=== PATIENT | male | born 2005 | race African-American/Black ===

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

== ENCOUNTER 2025-07-27 17:45 | Emergency (ER) | payer OTHER, SELFPAY ==
[2025-07-27 17:45] VITALS: BP 111/61; PULSE 98; RESP 16; TEMP 36.8; O2SAT 100
--- OUTSIDE RECORDS SUMMARY | 2025-07-27 17:48 | XMS_ITS | Clinical Summary ---
Author Organization [facility] Address [facility] [place] [address] Care Team Providers Care Bench Machine Operator Name Role Phone None, Provider MD Primary Care Provider Unavaila ble Allergies No known active allergies Medications azithromycin (ZITHROMAX Z-LACIE) 250 MG tablet Take 2 tabs on day one Take 1 tab on days 2-5 6 tablet 3 Active ondansetron (ZOFRAN-ODT) 4 MG disintegrating tablet Take 1 tablet (4 mg total) by mouth every 8 (eight) hours as needed. 20 tablet 4 Active dicyclomine (BENTYL) 10 MG capsule Take 1 capsule (10 mg total) by mouth 4 (four) times daily as needed. 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 Gender Identity Not on file Sexual Orientation Not on file Last Filed Vital Signs Vital Sign Reading Time Taken Comments Blood Pressure 125/56 07/04/2024 1:00 PM CDT Pulse 59 07/04/2024 1:00 PM CDT Temperature 36.4 C (97.5 F) 07/04/2024 10:57 AM CDT Respiratory Rate 18 07/04/2024 1:00 PM CDT Oxygen Saturation 100% 07/04/2024 1:00 PM CDT Inhaled Oxygen Concentration - - Weight 65.8 kg (145 lb) 07/04/2024 10:48 AM CDT Height 180.3 cm (5' 11) 07/04/2024 10:48 AM CDT Body Mass Index 20.22 07/04/2024 10:48 AM CDT Plan of Treatment Health Maintenance Due Date Last Done Comments Annual Physical 2008 Meningococcal B Vaccine (1 of 2 - Standard) 2021 Hepatitis C 2023 COVID-19 Vaccine ( - 2023- season) 2024 DTaP, Tdap and Td Vaccines (8 - Td or Tdap) 06/16/2033 06/16/2023, 09/17/2016, 07/20/2009, Additional history exists Hepatitis B Vaccines Completed 01/10/2007, 01/10/2007, 05/03/2006, Additional history exists Pneumococcal Vaccine: Pediatrics (0 to 5 Years) and At-Risk Patients (6 to 49 Years) Completed 02/01/2009, 05/03/2006, 2005, Additional history exists HPV Vaccines Completed 09/17/2016, 11/08/2015 Meningococcal Vaccine Completed 06/13/2022, 017 RSV Immunizations Under 20 Months Aged Out No longer eligible based on patient's age to complete this topic [facility] [address] Care Teams Bench Machine Operator Relationship Specialty Start Date End Date None, Provider, MD PCP - General UNKNOWN PHYSICIAN SPECIALTY 11/20/23
--- OUTSIDE RECORDS SUMMARY | 2025-07-27 17:48 | XMS_ITS | Clinical Summary ---
Author Organization [facility] [place] Address [address] [place] [address] Care Team Providers Care Service Center Assistant Name Role Phone Unknown, Notinfile Primary Care Provider Unavail able Allergies No known active allergies Medications naproxen (NAPROSYN) 500 mg tablet Take 1 tablet (500 mg total) by mouth 2 (two) times a day with meals 30 tablet 06/16/2023 Active Immunizations Immunization Administration Dates Next Due Tdap 06/16/2023 Social History Tobacco Use Types Packs/Day Years Used Date Smoking Tobacco: Never Assessed Personal Safety Answer Date Recorded Getting School Help Needed Not on file 01/25 Sex and Gender Information Value Date Recorded Sex Assigned at Not on file Legal Sex Male 7:56 PM CDT Gender Identity Not on file Sexual Orientation Not on file Last Filed Vital Signs Vital Sign Reading Time Taken Comments Blood Pressure 115/86 06/16/2023 10:17 PM CDT Pulse 77 06/16/2023 10:17 PM CDT Temperature 36.4 C (97.5 F) 06/16/2023 8:01 PM CDT Respiratory Rate 18 06/16/2023 10:17 PM CDT Oxygen Saturation 100% 06/16/2023 10:17 PM CDT Inhaled Oxygen Concentration - - Weight 66 kg (145 lb 8.1 oz) 06/16/2023 8:01 PM CDT Height - - Body Mass Index - - Plan of Treatment Health Maintenance Due Date Last Done Comments Depression Screening 2005 Hepatitis C Screening 2005 Varicella Vaccines (1 of 2 - 13+ 2-dose series) 2018 Meningococcal B Vaccine (1 o f 2 - Standard) 2021 Hepatitis B Screening 2023 Regular Well Visit/Exam 18-64 2023 Influenza Vaccine (#1) 2025 11/08/2015 DTaP/Tdap/Td Vaccine (3 - Td or Tdap) 06/16/2033 06/16/2023, 09/17/2016 HPV Vaccines Completed 09/17/2016, 11/08/2015 Meningococcal Vaccine Aged Out No twila martha eligible based on patient's age to complete this topic Pneumococcal vaccine <65 Aged Out No longer eligible based on patient's age to complete this topic Insurance [employer] [place] [address] Care Teams Service Center Assistant Relationship Specialty Start Date End Date Unknown, Notinfile PCP - General 06/16/23
--- OUTSIDE RECORDS SUMMARY | 2025-07-27 17:48 | XMS_ITS | Clinical Summary ---
Author Organization [facility] Address [address] [facility] [place] [address] Care Team Providers Care Sexual Assault Social Worker Name Role Phone Minnie Pichardo MD Unavailable [phone] Radha Munson MD Primary Care Provider [phone] Source Comments [facility],non-owned Affiliates and Associated Physician Practices is amultiple site organization consisting of ambulatory clinics and hospital sitesin [place], [place], [place] and [place]. This disclosure is being madepursuant to the Care Everywhere program and may not contain all information available regarding this patient. Last updated 18.[facility] Allergies No known active allergies Medications * Be aware that medications may not be up to date on this document. Alwaysverify current medications with the patient. acetaminophen (Tylenol) 500 MG capsule Take 1 (one) capsule by mouth every 6 hours as needed for Fever or Pain 50 capsule 09/28/2022 Active ibuprofen (Motrin) 400 MG tablet Take 1 (one) tablet by mouth every 6 hours as needed for Pain 50 tablet 09/28/2022 Active Active Problems Problem Noted Date Diagnosed Date Gross hematuria 09/04/2022 Assessment & Plan (09/04/2022 10:03 AM CDT): A&P Seems to have real gross hematuria and no infection source so far. CT negative in Nov (non-con). Recommended further blood screening for nephritic source of bleeding before possible referral to nephrology. However, would completed urology work-up and recommend proceeding with cystosopy, possible bladder biopsy if lesion present, bilateral retrograde pyelograms. Pt and MOC desire to proceed and will have scheduled. Rupture of ulnar collateral ligament of right th umb 04/08/2019 Encounter for routine child health examination without abnormal findings 01/01/2018 Assessment & Plan (01/01/2018 12:38 PM MANDARIN CHINESE TEACHER): Cathie Blanca is here for his adolescent well child check and has normal growth with good interval weight gain and normal development. Immunizations up to date Dental referral for prevention Age appropriate anticipatory guidance provided Return for next well child check; sooner if concerns arise. Immunizations Immunization Administration Dates Next Due Human Papilloma Virus Vaccine 09/17/2016, 015 INFLUENZA VACCINE 11/08/2015 TDAP (7yrs+) 09/17/2016 Family History Medical History Relation Name Comments Diabetes - Type 2 Sister Relation Name Status Comments Sister Social History Tobacco Use Types Packs/Day Years Used Date Smoking Tobacco: Never Smokeless Tobacco: Never Alcohol Use Standard Drinks/Week Comments Never 0 (1 standard drink = 0.6 oz pur e alcohol) Sex and Gender Information Value Date Recorded Sex Assigned at Not on file Legal Sex Male 5:46 AM MANDARIN CHINESE TEACHER Gender Identity Not on file Sexual Orientation Not on file Last Filed Vital Signs Vital Sign Reading Time Taken Comments Blood Pressure 121/74 09/28/2022 3:15 PM CDT Pulse 86 09/28/2022 3:15 PM CDT Temperature 36.4 C (97.5 F) 09/28/2022 2:30 PM CDT Respiratory Rate 16 09/28/2022 3:15 PM CDT Oxygen Saturation 99% 09/28/2022 3:30 PM CDT Inhaled Oxygen Concentration - - Weight 60.4 kg (133 lb 2.5 oz) 09/28/2022 12:25 PM CDT Height 182 cm (5' 11.65) 09/28/2022 12:25 PM CD T Body Mass Index 18.23 09/28/2022 12:25 PM CDT Plan of Treatment Health Maintenance Due Date Last Done Comments MENINGOCOCCAL (Group B) VACCINE SHARED DECISION-MAKING (1 of 2 - Standard) 2021 HEPATITIS C SCREENING 04/10/2023 HEPATITIS B VACCINE (1 of 3 - 19+ 3-dose series) 2024 COVID-19 VACCINE (1 - 2023-2 5 season) 2024 DEPRESSION SCREENING 11/25/2024 01/01/2018 INFLUENZA VACCINE (#1) 2025 11/08/2015 DTAP/TDAP/TD VACCINES (2 - T d or Tdap) 09/17/2026 09/17/2016 ZOSTER VACCINE (1 of 2) 2055 HPV VACCINE Completed 09/17/2016, 11/08/2015 HIV SCREENING Completed 08/19/2022 HIB VACCINE Aged Out No longer eligi ble based on patient's age to complete this topic MENINGOCOCCAL GROUPS A/C/Y/W VACCINE Aged Out No longer eligible b ased on patient's age to complete this topic PNEUMOCOCCAL VACCINE Aged Out No long er eligible based on patient's age to complete this topic Medical Devices Implanted Type Area Renewable Energy Project Manager Device Identifier Shelf Expiration Date Model / Serial / Lot Suture Lorida, Mini Biocomposite Suturetak Implanted:Qty: 1 on 04/08/2019 by Micheal Membreno MD at [facility] Right: Hand [employer] Cherelle 02/23/2020 [id number] / / [id number] Wire K 1.1mm 229mm 2 End Troc Pnt Sty 1 Implanted:Qty: 1 on 04/08/2019 by Micheal Membreno MD at [facility] Right: Thumb [employer] [id number] / / Procedures Procedure Name Priority Date/Time Associated Diagnosis Comments HIV-1 HIV-2 ANTIBODY + HIV P24 AG PANEL STAT 08/19/2022 7:05 PM CDT from Last 3 Months or Most Recently Relevant to Health Maintenance Results * HIV-1 HIV-2 ANTIBODY + HIV P24 AG PANEL (08/19/2022 7:05 PM CDT) HIV Antigen/Antibod y 1 & 2 Non-reacti ve Non-react manisha 08/19/2022 8:05 PM CDT [facility] Comment:No Laboratory eviden ce of HIV infection. Blood BLOOD SPECIMEN / Unknown Venipuncture / Unknown 08/19/2022 7:05 PM CDT 08/19/2022 7:16 PM CDT us Ellyn Javier GETTERING OPERATOR-ADAPTED PHYSICAL EDUCATION SPECIALIST LAB - CHEMISTRY ORDER DEMARCO Final Result [facility] [address] [place] [address], [facility] [phone] from Last 3 Months or Most Recently Relevant to Health Maintenance Insurance MEDICAID [place] [address] [place] [address] MEDICAID - OUT OF [place] [address] [place] [address] [employer] [facility] MEDICAID - OUT OF STATE Care Teams Sexual Assault Social Worker Relationship Specialty [place] [address] [place] [id number] PCP - General Pediatrics 08/31/22 Minnie Pichardo MD Student Resident 11/11/17
--- NOTE | 2025-07-27 17:51 | ED.EAR ---
HPI - Ear Problem General Chief complaint: Ear Stated complaint: ear infection Time Seen by Provider: 07/27/25 17:52 Source: patient Mode of arrival: ambulatory Limitations: no limitations History of Present Illness HPI Narrative: Patient is a 20 y/o male who presents to the ED with c/o decreased hearing to bilateral ears. Patient reports over the past week he has had decreased hearing in his right ear, now presenting also in his left ear. Reports some drainage from bilateral ears with odor. Denies significant pain. Has been using Q-tips. Denies fevers. Related Data Allergies Allergy/AdvReac Type Severity Reaction Status Date / Time No Known Allergies Allergy Verified 07/27/25 17:51 Review of Systems Review of Systems: All systems reviewed & are unremarkable except as noted in HPI. All systems reviewed & are unremarkable except as noted in HPI and below Exam Narrative: GENERAL: Well appearing, well-nourished, non-toxic, in no acute distress. HEAD: Normocephalic, atraumatic. ENT: Yinka EAC swollen and erythematous with yellow/white purulent drainage, R>L. Minimal tenderness with manipulation of pinnas bilaterally. Unable to fully visualize TMs yinka RESPIRATORY: Airway patent, respirations nonlabored. CARDIOVASCULAR: Regular rate and rhythm MUSCULOSKELETAL: Moves all extremities. No gross deformities. SKIN: Warm, dry, normal color. NEURO: A&O X3. Speech clear. PSYCHIATRIC: Appropriate mood and affect. Normal interaction. Course Vital Signs Vital signs: Vital Signs Temperature 98.3 F 07/27/25 17:45 Pulse Rate 98 07/27/25 17:45 Respiratory Rate 16 07/27/25 17:45 Blood Pressure 111/61 07/27/25 17:45 Pulse Oximetry 100 07/27/25 17:45 Oxygen Delivery Room Air 07/27/25 17:45 Temperature 98.3 F 07/27/25 17:45 Pulse Rate 98 07/27/25 17:45 Respiratory Rate 16 07/27/25 17:45 Blood Pressure 111/61 07/27/25 17:45 Pulse Oximetry 100 07/27/25 17:45 Oxygen Delivery Room Air 07/27/25 17:45 Medical Decision Making MDM Narrative Medical decision making narrative: Exam consistent with bilateral otitis externa. Will treat for such. Started on ofloxacin ear drops. Will refer to ENT for further developed needed. Given return precautions. Discharged in stable condition. Medical Records Medical records reviewed: Yes I reviewed the external patient's medical records. Vital Signs Vital Signs: Vital Signs Temperature 98.3 F 07/27/25 17:45 Pulse Rate 98 07/27/25 17:45 Respiratory Rate 16 07/27/25 17:45 Blood Pressure 111/61 07/27/25 17:45 Pulse Oximetry 100 07/27/25 17:45 Oxygen Delivery Room Air 07/27/25 17:45 Temperature 98.3 F 07/27/25 17:45 Pulse Rate 98 07/27/25 17:45 Respiratory Rate 16 07/27/25 17:45 Blood Pressure 111/61 07/27/25 17:45 Pulse Oximetry 100 07/27/25 17:45 Oxygen Delivery Room Air 07/27/25 17:45 Discharge Plan Discharge Clinical Impression: Otitis externa Qualifiers: Otitis externa type: diffuse Chronicity: acute Laterality: bilateral Qualified Code(s): H60.313 - Diffuse otitis externa, bilateral Patient Disposition: Home Condition: Stable Instructions: Antibiotic Form, Swimmer's Ear (ED), Ear Infection (ED) Additional Instructions: Use ear drops as prescribed. Avoid putting anything into your ears. Recommend Tylenol/ibuprofen if needed for pain. Follow up with ENT for further evaluation if needed. Return for new or worsening concerns. Patient Language: Gabonese Prescriptions: New ofloxacin 0.3 % drops 10 drp EACH EAR DAILY 7 Days Qty: 5 0RF No Action doxycycline monohydrate 100 mg capsule 100 mg PO BID 7 Days Qty: 14 0RF Follow-up/Referrals: Augusto Burroughs MD [Physician, Ear, Nose, Throat] Referral Note: ENT PHYSICIAN NOT ON STAFF,NONSTAFF [Non-Staff] Time of Disposition: 17:55
[2025-07-27] MEDS: OFLOXACIN 0.3% OPHTH SOLN 5 ML BTL 10 DROP EACH EAR (18:06)
== END 2025-07-27 18:09 | disposition home or self-care (01) ==
LOC: ANHED 17:55
PROVIDERS: Emergency Provider Physician Assistant
DX: H60.313 Diffuse otitis externa, bilateral (principal)
CPT/HCPCS: 99283; A9270

== ENCOUNTER 2025-10-06 20:09 | Emergency (ER) | payer OTHER, SELFPAY ==
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
--- OUTSIDE RECORDS SUMMARY | 2025-10-06 20:11 | XMS_ITS | Data Portability ---
Author Organization [facility] [place] PADGETT Address [address] [place] [address] Assessment Encounter Date Assessment Date Assessment LastModified by Organization Details LastModified Time 11/03/2021 11/03/2021 Pt's cell: [phone] Not available 11/03/2021 10:47:29 12/01/2021 12/01/2021 Pt's cell: [phone] Not available 12/01/2021 14:52:52 04/09/2023 04/09/2023 Pt's cell: [phone] Not available 04/09/2023 17:05:55 03/18/2024 03/18/2024 Clinically, the LN appear benign oajao Not available 03/18/2024 16:56:52 Plan of Treatment Reminders Order Date Submit Date Provider Last Modified By Organization Details Last Modified Time Details Appointments ANY 15 2024 11:15A Pardeep Osborne MD Not available Not available Not available Lab CT + NG RNA, PCR, unspecif ied specimen 2023 024 SRIRAM CORREA, [address], [place], [address], 03/20/2024 07:15:41 hsv (1+2) igg, serum 2023 024 [address], [place], [address], 03/20/2024 07:15:41 RPR (rapid plasma reagin), serum 2023 SRIRAM ORTEGARP, [address], [address], [place], [address], 03/20/2024 07:15:44 CBC w/ auto diff 2023 024 SRIRAM [facility], [address], [address], [place], [address], 03/20/2024 07:15:43 CMP, serum or plasma 2023 024 SRIRAM WORKMANEVELIO, [address], [address], [place], [address], 03/20/2024 07:15:42 HIV 1 + 2, meaningf ul use set 2023 024 [facility], [address], [address], [place], [address], 03/20/2024 07:15:45 urinalys is, dipstick 2023 024 [facility] [address], [place], [address], 03/20/2024 07:15:43 Hepatiti s C IgG Ab, qual, serum 2023 024 SRIRAM WORKMANEVELIO, [address], [address], [place], [address], 03/20/2024 07:15:40 urinalys is, dipstick 2022 023 SRIRAM In-Office Order, Internal Use Only DO Not Attach Compendium DO Not Attach Compendium, Do Not Delete/merge, [id number] 04/09/2023 17:24:51 culture, urine 2022 023 SRIRAM SUNNY, [address], [address], [place], [address], 04/15/2023 21:06:25 HIV 1 + 2, meaningf ul use set 2022 023 SRIRAMPATTY CORREA, [address], [address], [place], [address], 04/10/2023 10:08:17 RPR (rapid plasma reagin), serum 2022 023 SRIRAM SUNNY, [address], [address], [place], [address], 04/10/2023 10:08:16 sexually transmit julio c pathogen s panel, ZARIA+prob e, unspecif ied specimen 2022 023 SRIRAM SUNNY, [address], [address], [place], [address], 04/15/2023 21:06:24 CMP, serum or plasma 2021 022 SRIRAM SUNNY, [address], [address], [place], [address], 12/06/2021 12:07:24 C reactive protein, QN, serum or plasma 2021 022 SRIRAM CORREA, [address], [address], [place], [address], 12/06/2021 12:07:26 PT/PTT, plasma 2021 022 SRIRAM CORREA, [address], [address], [place], [address], 12/06/2021 12:07:26 CBC w/ auto diff 2021 022 SRIRAM CORREA, [address], [address], [place], [address], 12/06/2021 12:07:23 urinalys is, dipstick 2021 022 SRIRAM In-Office Order, Internal Use Only DO Not Attach Compendium DO Not Attach Compendium, Do Not Delete/merge, [id number] 12/01/2021 16:20:46 STI panel 2021 SRIRAM CORREA, [address], [place], [address], 12/06/2021 12:07:25 culture, urine 2021 022 SRIRAM CORREA, [address], [address], [place], [address], 12/06/2021 12:07:27 STI panel 2020 021 SRIRAM CORREA, [address], [address], [place], [address], 11/10/2021 14:08:28 culture, urine 2020 021 SRIRAM CORREA, [address], [address], [place], [address], 11/10/2021 14:08:29 HIV (1+2) Ab, rapid, unspecif ied specimen 2020 021 In-Office Order, Internal Use Only DO Not Attach Compendium DO Not Attach Compendium, Do Not Delete/merge, [id number] 11/03/2021 10:40:01 urinalys is, dipstick 2020 021 SRIRAM CORREA, [address], [address], [place], [address], 11/03/2021 10:47:16 Referral None recorded . Procedures None recorded . Surgeries None recorded . Imaging US, neck, soft tissue - Tonsilla r lymphade nopathy 2023 024 [facility]uling, [address] [facility], [place], [address], 03/30/2024 09:38:45 US, kidney 2021 022 [facility] (Radiology), [address] [place] [address], [address], 02/07/2022 14:34:40 Medication Orders mupiroci n 2 % topical ointment 2022 024 [facility], [address] [place] [address], [address], 03/18/2024 14:03:43 erythrom ycin-harley zoyl peroxide 3 %-5 % topical gel 2021 022 [facility], [address] [place], [address], 03/18/2024 14:03:38 tretinoi n 0.05 % topical cream 2021 022 [facility], [address] [place], [address], 03/18/2024 14:03:28 polyethy clif glycol 3350 17 gram/dos e oral powder [address] [facility], [address] [place], [address], 06/13/2022 10:35:02 phenazop yridine 200 mg tablet [address] [facility], [address] [facility], [place], [address], 06/13/2022 10:35:00 nitrofur antoin macrocry stal 50 mg capsule 2021 022 [facility], [address] [facility], [place], [address], 06/13/2022 10:34:57 ceftriax one 500 mg solution for injectio n 2020 Not available 12/01/2021 15:27:30 doxycycl ine hyclate 100 mg tablet [facility], [address] [place] [address], [address], 03/18/2024 14:03:41 Patient TargetsNo targets recorded. Patient Instructions Encounter Date Encounter Id Patient Instructions Last Modified By Organization Details Last Modified Time 06/13/2022 [id number] patient health questionnaire modified for adolescents* Not available 06/13/2022 11:38:10 03/18/2024 [id number] [facility] List of dentists Stop smoking Follow up in 4 weeks and CHRISTOPHER vazquez Not available 03/18/2024 14:43:25 Reason for Referral None Reported. Results Created Date Observation Date Name Description Value Unit Range Abnormal Flag Note LastModifiedBy Organization Detail LastModifiedTime 11/03/2011/08/2021 CT, NG, MYCOP LASMA S ZARIA, URINE chlamydia trachomatis, ZARIA NEGATI VE negati ve Not Available [facility] ([facility]) [address] [place], [address], 11/10/2021 14:08:28 11/03/2011/08/2021 CT, NG, MYCOP LASMA S ZARIA, URINE neisseria gonorrhoeae, ZARIA NEGATI VE negati ve Not Available [facility] ([facility]) [address] [place], [address], 11/10/2021 14:08:28 12/10/20 21 11/09/2021 CT, NG, MYCOP LASMA S ZARIA, URINE mycoplasma genitalium ZARIA NEGATI VE negati ve Not Available [facility] ([facility]) [address] [place], [address], 11/10/2021 14:08:28 11/03/20 21 11/10/2021 CT, NG, MYCOP LASMA S ZARIA, URINE mycoplasma hominis ZARIA NEGATI VE negati ve Not Available [facility] ([facility]) [address] [place], [address], 11/10/2021 14:08:28 11/03/2011/10/2021 CT, NG, MYCOP LASMA S ZARIA, URINE ureaplasma spp ZARIA NEGATI VE negati ve Not Available [facility] ([facility]) [address] [place], [address], 11/10/2021 14:08:28 11/03/2011/08/2021 URINE CULTU RE, ROUTI NE urine culture, routine FINAL REPORT abnormal Not Available [facility] ([facility]) [address] [place], [address], 11/10/2021 14:08:29 11/03/20 21 11/08/2021 URINE CULTU RE, ROUTI NE result 1 COMMEN T abnormal Staph yloco ccus epide rmidi s Based on resis tance to oxaci llin this isola te would be resis tant to all curre ntly avail able beta- lacta m antim icrob ial agent s, with the excep tion of the newer cepha lospo rins with anti- MRSA activ ity, such as Cefta rolin e 10,00 0-25, 000 colon y formi ng units per mL Not Available [facility] ([facility]) [address] [place], [address], 11/10/2021 14:08:29 11/03/20 21 11/08/2021 URINE CULTU RE, ROUTI NE antimicrobia l susceptibili ty COMMEN T S = Susce ptibl e; I = Inter media te; R = Resis tant P = Posit jah; N = Negat jah MICS are expre ssed in micro grams per mL Antib iotic RSLT# 1 RSLT# 2 RSLT# 3 RSLT# 4 Cipro floxa nahid R Genta micin S Levof loxac in I Linez olid S Moxif loxac in R Nitro furan toin S Oxaci llin R Penic illin R Quinu prist in/Da lfopr istin S Rifam pin S Tetra cycli ne R Trime thopr im/Zambrano lfa S Vanco mycin S Not Available [facility] ([facility]) [address] [facility], [place], [address], 11/10/2021 14:08:29 11/03/20 21 11/03/2021 HIV (1+2) Ab, rapid , unspe cifie d speci men Result negati ve Not Available In-Office Order Internal Use Only DO Not Attach Compendium DO Not Attach Compendium, Do Not Delete/merge, [id number] 11/03/2021 10:25:47 11/03/20 21 11/03/2021 HIV (1+2) Ab, rapid , unspe cifie d speci men Consent Yes Not Available In-Office Order Internal Use Only DO Not Attach Compendium DO Not Attach Compendium, Do Not Delete/merge, [id number] 11/03/2021 10:25:47 12/01/19 22 12/02/2021 CBC WITH DIFFE RENTI AL/PL ATELE T WBC 6.1 x10e3 /uL 3.4-10 .8 Not Available [facility] ([facility]) [address] [place], [address], 12/06/2021 12:07:23 12/01/19 22 12/02/2021 CBC WITH DIFFE RENTI AL/PL ATELE T RBC 5.25 x10e6 /uL 4.14-5 .80 Not Available [facility] ([facility] [address] [place], [address], 12/06/2021 12:07:23 12/01/19 22 12/02/2021 CBC WITH DIFFE RENTI AL/PL ATELE T hemoglobin 14.6 g/dL 13.0-1 7.7 Not Available [facility] ([facility]) [address] [place], [address], 12/06/2021 12:07:23 12/01/19 22 12/02/2021 CBC WITH DIFFE RENTI AL/PL ATELE T hematocrit 44.0 % 37.5-5 1.0 Not Available [facility] ([facility]) [address] [place], [address], 12/06/2021 12:07:23 12/01/19 22 12/02/2021 CBC WITH DIFFE RENTI AL/PL ATELE T MCV 84 fL 79-97 Not Available [facility] ([facility]) [address] [place], [address], 12/06/2021 12:07:23 12/01/19 22 12/02/2021 CBC WITH DIFFE RENTI AL/PL ATELE T MCH 27.8 pg 26.6-3 3.0 Not Available [facility] ([facility]) [address] [place], [address], 12/06/2021 12:07:23 12/01/19 22 12/02/2021 CBC WITH DIFFE RENTI AL/PL ATELE T MCHC 33.2 g/dL 31.5-3 5.7 Not Available [facility] ([facility]) [address] [place], [address], 12/06/2021 12:07:23 12/01/19 22 12/02/2021 CBC WITH DIFFE RENTI AL/PL ATELE T RDW 14.2 % 11.6-1 5.4 Not Available [facility] ([facility]) [address] [place], [address], 12/06/2021 12:07:23 12/01/19 22 12/02/2021 CBC WITH DIFFE RENTI AL/PL ATELE T platelets 215 x10e3 /uL 150-45 0 Not Available [facility] ([facility]) [address] [facility], [place], [address], 12/06/2021 12:07:23 12/01/19 22 12/02/2021 CBC WITH DIFFE RENTI AL/PL ATELE T neutrophils 48 % not estab. Not Available [facility] ([facility]) [address] [facility], [place], [address], 12/06/2021 12:07:23 12/01/19 22 12/02/2021 CBC WITH DIFFE RENTI AL/PL ATELE T lymphs 38 % not estab. Not Available [facility] ([facility]) [address] [facility], [place], [address], 12/06/2021 12:07:23 12/01/19 22 12/02/2021 CBC WITH DIFFE RENTI AL/PL ATELE T monocytes 10 % not estab. Not Available [facility] ([facility]) [address] [facility], [place], [address], 12/06/2021 12:07:23 12/01/19 22 12/02/2021 CBC WITH DIFFE RENTI AL/PL ATELE T eos 4 % not estab. Not Available [facility] ([facility]) [address] [facility], [place], [address], 12/06/2021 12:07:23 12/01/19 22 12/02/2021 CBC WITH DIFFE RENTI AL/PL ATELE T basos 0 % not estab. Not Available [facility] ([facility]) [address] [facility], [place], [address], 12/06/2021 12:07:23 12/01/19 22 12/02/2021 CBC WITH DIFFE RENTI AL/PL ATELE T immature cells SHANK PINNER Not Available [facility]) [address] [place], [address], 12/06/2021 12:07:23 12/01/19 22 12/02/2021 CBC WITH DIFFE RENTI AL/PL ATELE T neutrophils (absolute) 2.9 x10e3 /uL 1.4-7. 0 Not Available [facility] ([facility]) [address] [place], [address], 12/06/2021 12:07:23 12/01/19 22 12/02/2021 CBC WITH DIFFE RENTI AL/PL ATELE T lymphs (absolute) 2.3 x10e3 /uL 0.7-3. 1 Not Available [facility] ([facility]) [address] [place], [address], 12/06/2021 12:07:23 12/01/19 22 12/02/2021 CBC WITH DIFFE RENTI AL/PL ATELE T monocytes(ab solute) 0.6 x10e3 /uL 0.1-0. 9 Not Available [facility] ([facility]) [address] [place], [address], 12/06/2021 12:07:23 12/01/19 22 12/02/2021 CBC WITH DIFFE RENTI AL/PL ATELE T eos (absolute) 0.3 x10e3 /uL 0.0-0. 4 Not Available [facility] ([facility]) [address] [place], [address], 12/06/2021 12:07:23 12/01/19 22 12/02/2021 CBC WITH DIFFE RENTI AL/PL ATELE T baso (absolute) 0.0 x10e3 /uL 0.0-0. 3 Not Available [facility] ([facility]) [address] [place], [address], 12/06/2021 12:07:23 12/01/19 22 12/02/2021 CBC WITH DIFFE RENTI AL/PL ATELE T immature granulocytes 0 % not estab. Not Available [facility] ([facility]) [address] [facility], [place], [address], 12/06/2021 12:07:23 12/01/19 22 12/02/2021 CBC WITH DIFFE RENTI AL/PL ATELE T immature grans (abs) 0.0 x10e3 /uL 0.0-0. 1 Not Available [facility] ([facility]) [address] [facility], [place], [address], 12/06/2021 12:07:23 12/01/19 22 12/02/2021 CBC WITH DIFFE RENTI AL/PL ATELE T NRBC SHANK PINNER Not Available [facility] ([facility]) [address] [facility], [place], [address], 12/06/2021 12:07:23 12/01/19 22 12/02/2021 CBC WITH DIFFE RENTI AL/PL ATELE T hematology comments: SHANK PINNER Not Available [facility]) [address] [facility], [place], [address], 12/06/2021 12:07:23 12/01/19 22 12/02/2021 COMP. METAB OLIC PANEL (14) glucose 72 mg/dL 65-99 Not Available [facility] ([facility]) [address] [facility], [place], [address], 12/06/2021 12:07:24 12/01/19 22 12/02/2021 COMP. METAB OLIC PANEL (14) BUN 12 mg/dL 5-18 Not Available [facility] ([facility]) [address] [place], [address], 12/06/2021 12:07:24 12/01/19 22 12/02/2021 COMP. METAB OLIC PANEL (14) creatinine 0.92 mg/dL 0.76-1 .27 Not Available [facility] ([facility]) [address] [facility] [place], [address], 12/06/2021 12:07:24 12/01/19 22 12/02/2021 COMP. METAB OLIC PANEL (14) BUN/creatini ne ratio 13 10-22 Not Available [facility]) [address] [facility] [place], [address], 12/06/2021 12:07:24 12/01/19 22 12/02/2021 COMP. METAB OLIC PANEL (14) sodium 143 mmol/ L 134-14 4 Not Available [facility] ([facility]) [address] [facility] [place], [address], 12/06/2021 12:07:24 12/01/19 22 12/02/2021 COMP. METAB OLIC PANEL (14) potassium 4.6 mmol/ L 3.5-5. 2 Not Available [facility] ([facility]) [address] [facility] [place], [address], 12/06/2021 12:07:24 12/01/19 22 12/02/2021 COMP. METAB OLIC PANEL (14) chloride 102 mmol/ L 96-106 Not Available [facility] ([facility]) [address] [facility] [place], [address], 12/06/2021 12:07:24 12/01/19 22 12/02/2021 COMP. METAB OLIC PANEL (14) carbon dioxide, total 27 mmol/ L 20-29 Not Available [facility] ([facility]) [address] [facility] [place], [address], 12/06/2021 12:07:24 12/01/19 22 12/02/2021 COMP. METAB OLIC PANEL (14) calcium 9.5 mg/dL 8.9-10 .4 Not Available [facility] ([facility]) [address] [facility], [address], 12/06/2021 12:07:24 12/01/19 22 12/02/2021 COMP. METAB OLIC PANEL (14) protein, total 7.5 g/dL 6.0-8. 5 Not Available [facility] ([facility]) [address] [facility] [place], [address], 12/06/2021 12:07:24 12/01/19 22 12/02/2021 COMP. METAB OLIC PANEL (14) albumin 4.6 g/dL 4.1-5. 2 Not Available [facility] ([facility]) [address] [facility] [place], [address], 12/06/2021 12:07:24 12/01/19 22 12/02/2021 COMP. METAB OLIC PANEL (14) globulin, total 2.9 g/dL 1.5-4. 5 Not Available [facility] ([facility]) [address] [facility] [place], [address], 12/06/2021 12:07:24 12/01/19 22 12/02/2021 COMP. METAB OLIC PANEL (14) A/G ratio 1.6 1.2-2. 2 Not Available [facility] ([facility]) [address] [facility] [place], [address], 12/06/2021 12:07:24 12/01/19 22 12/02/2021 COMP. METAB OLIC PANEL (14) bilirubin, total 1.2 mg/dL 0.0-1. 2 Not Available [facility] ([facility]) [address] [facility] [place], [address], 12/06/2021 12:07:24 12/01/19 22 12/02/2021 COMP. METAB OLIC PANEL (14) alkaline phosphatase 202 IU/L 74-207 Ple ase note refer ence inter stanley dominguez e Not Available [facility] ([facility]) [address] [place], [address], 12/06/2021 12:07:24 12/01/19 22 12/02/2021 COMP. METAB OLIC PANEL (14) AST (SGOT) 25 IU/L 0-40 Not Available [facility] ([facility]) [address] [facility], [place], [address], 12/06/2021 12:07:24 12/01/19 22 12/02/2021 COMP. METAB OLIC PANEL (14) ALT (SGPT) 15 IU/L 0-30 Not Available [facility] ([facility]) [address] [facility] [place], [address], 12/06/2021 12:07:24 12/01/19 22 12/02/2021 URINA LYSIS , ROUTI NE specific gravity 1.027 1.005- 1.030 Not Available [facility] ([facility]) [address] [facility] [place], [address], 12/06/2021 12:07:24 12/01/19 22 12/02/2021 URINA LYSIS , ROUTI NE pH 6.5 5.0-7. 5 Not Available [facility] ([facility]) [address] [facility], [place], [address], 12/06/2021 12:07:24 12/01/19 22 12/02/2021 URINA LYSIS , ROUTI NE urine-color Yellow yellow Not Available [facility]) [address] [facility], [place], [address], 12/06/2021 12:07:24 12/01/19 22 12/02/2021 URINA LYSIS , ROUTI NE appearance Cloudy clear abnormal Not Available [facility]) [address] [facility], [place], [address], 12/06/2021 12:07:24 12/01/19 22 12/02/2021 URINA LYSIS , ROUTI NE WBC esterase Trace negati ve abnormal Not Available [facility] ([facility]) [address] [place], [address], 12/06/2021 12:07:24 12/01/19 22 12/02/2021 URINA LYSIS , ROUTI NE protein 1+ negati ve/tra ce abnormal Not Available [facility] ([facility]) [address] [facility], [place], [address], 12/06/2021 12:07:24 12/01/19 22 12/02/2021 URINA LYSIS , ROUTI NE glucose Negati ve negati ve Not Available [facility] ([facility]) [address] [place], [address], 12/06/2021 12:07:24 12/01/19 22 12/02/2021 URINA LYSIS , ROUTI NE ketones Negati ve negati ve Not Available [facility] ([facility]) [address] [place], [address], 12/06/2021 12:07:24 12/01/19 22 12/02/2021 URINA LYSIS , ROUTI NE occult blood 2+ negati ve abnormal Not Available [facility] ([facility]) [address] [place], [address], 12/06/2021 12:07:24 12/01/19 22 12/02/2021 URINA LYSIS , ROUTI NE bilirubin Negati ve negati ve Not Available [facility] ([facility]) [address] [place], [address], 12/06/2021 12:07:24 12/01/19 22 12/02/2021 URINA LYSIS , ROUTI NE urobilinogen ,semi-qn 1.0 mg/dL 0.2-1. 0 Not Available [facility] ([facility]) [address] [place], [address], 12/06/2021 12:07:24 12/01/19 22 12/02/2021 URINA LYSIS , ROUTI NE nitrite, urine Negati ve negati ve Not Available [facility] ([facility]) [address] [facility], [place], [address], 12/06/2021 12:07:24 12/01/19 22 12/02/2021 URINA LYSIS , ROUTI NE microscopic examination See below: Micro scopi c was indic ated and was perfo rmed. Not Available [facility] ([facility]) [address] [facility], [place], [address], 12/06/2021 12:07:24 12/01/19 22 12/02/2021 URINA LYSIS , ROUTI NE WBC 0-5 /hpf 0 - 5 Not Available [facility] ([facility]) [address] [facility], [place], [address], 12/06/2021 12:07:24 12/01/19 22 12/02/2021 URINA LYSIS , ROUTI NE RBC >30 /hpf 0 - 2 abnormal Not Available [facility] ([facility]) [address] [facility], [place], [address], 12/06/2021 12:07:24 12/01/19 22 12/02/2021 URINA LYSIS , ROUTI NE epithelial cells (non renal) None seen /hpf 0 - 10 Not Available [facility] ([facility]) [address] [facility], [place], [address], 12/06/2021 12:07:24 12/01/19 22 12/02/2021 URINA LYSIS , ROUTI NE epithelial cells (renal) SHANK PINNER Not Available [facility]) [address] [facility], [place], [address], 12/06/2021 12:07:24 12/01/19 22 12/02/2021 URINA LYSIS , ROUTI NE casts None seen /lpf none seen Not Available [facility] ([facility]) [address], [place], [address], 12/06/2021 12:07:24 12/01/19 22 12/02/2021 URINA LYSIS , ROUTI NE cast type SHANK PINNER Not Available [facility] ([facility]) [address], [place], [address], 12/06/2021 12:07:24 12/01/19 22 12/02/2021 URINA LYSIS , ROUTI NE crystals SHANK PINNER Not Available [facility] ([facility]) [address] [facility], [place], [address], 12/06/2021 12:07:24 12/01/19 22 12/02/2021 URINA LYSIS , ROUTI NE crystal type SHANK PINNER Not Available [facility] [address] [facility], [place], [address], 12/06/2021 12:07:24 12/01/19 22 12/02/2021 URINA LYSIS , ROUTI NE mucus threads SHANK PINNER Not Available [facility] [address] [facility], [place], [address], 12/06/2021 12:07:24 12/01/19 22 12/02/2021 URINA LYSIS , ROUTI NE bacteria None seen none seen/f ew Not Available [facility] ([facility]) [address] [facility], [place], [address], 12/06/2021 12:07:24 12/01/19 22 12/02/2021 URINA LYSIS , ROUTI NE yeast SHANK PINNER Not Available [facility] ([facility]) [address] [facility], [place], [address], 12/06/2021 12:07:24 12/01/19 22 12/02/2021 URINA LYSIS , ROUTI NE trichomonas SHANK PINNER Not Available [facility] [address] [facility], [place], [address], 12/06/2021 12:07:24 12/01/19 22 12/02/2021 JAYA MAZA NE comment SHANK PINNER Not Available [facility] ([facility]) [address] [place], [address], 12/06/2021 12:07:24 12/01/19 22 12/05/2021 CT, NG, MYCOP LASMA S ZARIA, URINE chlamydia trachomatis, ZARIA Negati ve negati ve Not Available [facility] ([facility]) [address] [place], [address], 12/06/2021 12:07:25 12/01/19 22 12/05/2021 CT, NG, MYCOP LASMA S ZARIA, URINE neisseria gonorrhoeae, ZARIA Negati ve negati ve Not Available [facility] ([facility]) [address] [place], [address], 12/06/2021 12:07:25 12/01/19 22 12/06/2021 CT, NG, MYCOP LASMA S ZARIA, URINE mycoplasma genitalium ZARIA Negati ve negati ve Not Available [facility] ([facility]) [address] [place], [id number], 12/06/2021 12:07:25 12/01/19 22 12/06/2021 CT, NG, MYCOP LASMA S ZARIA, URINE mycoplasma hominis ZARIA Negati ve negati ve Not Available [facility] ([facility]) [address] [place], [address], 12/06/2021 12:07:25 12/01/19 22 12/06/2021 CT, NG, MYCOP LASMA S ZARIA, URINE ureaplasma spp ZARIA Negati ve negati ve Not Available [facility] ([facility]) [address] [place], [address], 12/06/2021 12:07:25 12/01/19 22 12/02/2021 PT AND PTT INR 1.0 0.9-1. 2 Refer ence inter stanley is for non-a ntico agula julio c patie nts. Sugge sted INR thera peuti c range for Vitam in K antag onist thera py: Stand cammie Dose (mode rate inten sity thera peuti c range ): 2.0 - 3.0 Highe r inten sity thera peuti c range 2.5 - 3.5 Not Available [facility] ([facility]) [address] [place], [address], 12/06/2021 12:07:26 12/01/19 22 12/02/2021 PT AND PTT prothrombin time 11.3 sec 9.9-12 .1 Not Available [facility] ([facility]) [address] [place], [address], 12/06/2021 12:07:26 12/01/19 22 12/02/2021 PT AND PTT APTT 27 sec 26-35 This test has not been valid ated for monit oring unfra ction ated hepar in thera py. aPTT- based thera peuti c range s for unfra ction ated hepar in thera py have not been estab stormy storm. For gener al guide lines on Hepar in monit oring , refer to the [facility] tory of Shefali peñaloza. Not Available [facility] ([facility]) [address] [facility], [place], [address], 12/06/2021 12:07:26 12/01/19 22 12/02/2021 C-HENRIK CTIVE PROTE IN, QUANT C-reactive protein, quant <1 mg/L 0-7 Not Available [facility] ([facility]) [address] [facility], [place], [address], 12/06/2021 12:07:26 12/01/19 22 12/03/2021 URINE CULTU RE, ROUTI NE urine culture, routine Final report Not Available [facility] ([facility]) [address] [facility], [place], [address], 12/06/2021 12:07:27 12/01/19 22 12/03/2021 URINE CULTU RE, FRANCISCO JAVIERI NE result 1 No growth Not Available [facility] ([facility]) [address] [facility], [place], [address], 12/06/2021 12:07:27 12/01/19 22 12/01/2021 urina lysis , dipst ick Leukocytes Negati ve Not Available In-Office Order Internal Use Only DO Not Attach Compendium DO Not Attach Compendium, Do Not Delete/merge, 12/01/2021 15:38:21 12/01/19 22 12/01/2021 urina lysis , dipst ick Nitrite negati ve Not Available In-Office Order Internal Use Only DO Not Attach Compendium DO Not Attach Compendium, Do Not Delete/merge, 12/01/2021 15:38:21 12/01/19 22 12/01/2021 urina lysis , dipst ick Urobilinogen 4 Not Available In-Of fice Order Internal Use Only DO Not Attach Compendium DO Not Attach Compendium, Do Not Delete/merge, 12/01/2021 15:38:21 12/01/19 22 12/01/2021 urina lysis , dipst ick Protein 30 Not Available In-Office Order Internal Use Only DO Not Attach Compendium DO Not Attach Compendium, Do Not Delete/merge, 12/01/2021 15:38:21 12/01/19 22 12/01/2021 urina lysis , dipst ick pH 7.0 Not Available In-Office Order Internal Use Only DO Not Attach Compendium DO Not Attach Compendium, Do Not Delete/merge, 12/01/2021 15:38:21 12/01/19 22 12/01/2021 urina lysis , dipst ick Blood Large Not Available In-Office Order Internal Use Only DO Not Attach Compendium DO Not Attach Compendium, Do Not Delete/merge, 12/01/2021 15:38:21 12/01/19 22 12/01/2021 urina lysis , dipst ick Specific [employer] 1.030 Not Available In-Off ice Order Internal Use Only DO Not Attach Compendium DO Not Attach Compendium, Do Not Delete/merge, [id number] 12/01/2021 15:38:21 12/01/19 22 12/01/2021 urina lysis , dipst ick Ketone Trace Not Available In-Office Order Internal Use Only DO Not Attach Compendium DO Not Attach Compendium, Do Not Delete/merge, [facility] 12/01/2021 15:38:21 12/01/19 22 12/01/2021 urina lysis , dipst ick Bilirubin Negati ve Not Available In-Office Order Internal Use Only DO Not Attach Compendium DO Not Attach Compendium, Do Not Delete/merge, [facility] 12/01/2021 15:38:21 12/01/19 22 12/01/2021 urina lysis , dipst ick Glucose Negati ve Not Available In-Office Order Internal Use Only DO Not Attach Compendium DO Not Attach Compendium, Do Not Delete/merge, [id number] 12/01/2021 15:38:21 08/19/20 22 08/19/2022 HIV 1+2 AB + HIV 1 p24 Ag, quali tativ e immun oassa y, serum HIV 1+2 Ab + HIV 1 P24 Ag, qualitative immunoassay, serum Non-re active text: non-re active No Labor atory evide nce of HIV infec tion. Not Available Not Available 08/20/2025 16:06:28 08/19/20 22 08/19/2022 HIV 1+2 AB + HIV 1 p24 Ag, quali tativ e immun oassa y, serum lab interpretati on Normal Not Available Not Available 07/27 16:06:28 04/09/20 23 04/10/2023 RPR, RFX QN RPR/C ONFIR M TP RPR NON REACTI VE nonrea ctive Not Available [facility] ([facility]) [address] [facility], [place], [address], 04/10/2023 10:08:16 04/09/2004/10/2023 HIV AB/P2 4 AG WITH REFLE X HIV Ab/P24 Ag screen NON REACTI VE nonrea ctive HIV Negat jah HIV-1 /HIV- 2 antib odies and HIV-1 p24 antig en were NOT detec julio c. There is no labor atory evide nce of HIV infec tion. Not Available [facility] ([facility]) [address] [facility], [place], [address], 04/10/2023 10:08:17 04/09/20 23 04/09/2023 urina lysis , dipst ick Leukocytes Negati ve Not Available In-Office Order Internal Use Only DO Not Attach Compendium DO Not Attach Compendium, Do Not Delete/merge, 04/09/2023 17:11:17 04/09/2004/09/2023 urina lysis , dipst ick Nitrite negati ve Not Available In-Office Order Internal Use Only DO Not Attach Compendium DO Not Attach Compendium, Do Not Delete/merge, 04/09/2023 17:11:17 04/09/20 23 04/09/2023 urina lysis , dipst ick Urobilinogen .2 Not Available In-Of fice Order Internal Use Only DO Not Attach Compendium DO Not Attach Compendium, Do Not Delete/merge, 04/09/2023 17:11:17 04/09/20 23 04/09/2023 urina lysis , dipst ick Protein Negati ve Not Available In-Office Order Internal Use Only DO Not Attach Compendium DO Not Attach Compendium, Do Not Delete/merge, 04/09/2023 17:11:17 04/09/20 23 04/09/2023 urina lysis , dipst ick pH 6.0 Not Available In-Office Order Internal Use Only DO Not Attach Compendium DO Not Attach Compendium, Do Not Delete/merge, 04/09/2023 17:11:17 04/09/20 23 04/09/2023 urina lysis , dipst ick Blood Negati ve Not Available In-Office Order Internal Use Only DO Not Attach Compendium DO Not Attach Compendium, Do Not Delete/merge, [id number] 04/09/2023 17:11:17 04/09/20 23 04/09/2023 urina lysis , dipst ick Specific [employer] 1.015 Not Available In-Off ice Order Internal Use Only DO Not Attach Compendium DO Not Attach Compendium, Do Not Delete/merge, [facility] 04/09/2023 17:11:17 04/09/20 23 04/09/2023 urina lysis , dipst ick Ketone Negati ve Not Available In-Office Order Internal Use Only DO Not Attach Compendium DO Not Attach Compendium, Do Not Delete/merge, [facility] 04/09/2023 17:11:17 04/09/20 23 04/09/2023 urina lysis , dipst ick Bilirubin Negati ve Not Available In-Office Order Internal Use Only DO Not Attach Compendium DO Not Attach Compendium, Do Not Delete/merge, [facility] 04/09/2023 17:11:17 04/09/20 23 04/09/2023 urina lysis , dipst ick Glucose Negati ve Not Available In-Office Order Internal Use Only DO Not Attach Compendium DO Not Attach Compendium, Do Not Delete/merge, [facility] 04/09/2023 17:11:17 04/10/20 23 04/15/2023 CT, NG, MYCOP LASMA S ZARIA, URINE mycoplasma genitalium ZARIA NEGATI VE negati ve Not Available [facility] ([facility]) [address] [place], [address], 04/15/2023 21:06:23 04/10/20 23 04/15/2023 CT, NG, MYCOP LASMA S ZARIA, URINE mycoplasma hominis ZARIA NEGATI VE negati ve Not Available [facility] ([facility]) [address] [place], [address], 04/15/2023 21:06:23 04/10/20 23 04/15/2023 CT, NG, MYCOP LASMA S ZARIA, URINE ureaplasma spp ZARIA POSITI VE negati ve abnormal Not Available [facility] ([facility]) [address] [place], [address], 04/15/2023 21:06:23 04/10/20 23 04/15/2023 CT, NG, MYCOP LASMA S ZARIA, URINE chlamydia trachomatis, ZARIA NEGATI VE negati ve Not Available [facility] ([facility]) [address] [facility], [place], [address], 04/15/2023 21:06:23 04/10/20 23 04/15/2023 CT, NG, MYCOP LASMA S ZARIA, URINE neisseria gonorrhoeae, ZARIA NEGATI VE negati ve Not Available [facility] ([facility]) [address] [facility], [place], [address], 04/15/2023 21:06:23 04/10/20 23 04/11/2023 URINE CULTU RE, ROUTI NE urine culture, routine FINAL REPORT Not Available [facility] ([facility]) [address] [facility], [place], [address], 04/15/2023 21:06:25 04/10/20 23 04/11/2023 URINE CULTU RE, ROUTI NE result 1 COMMEN T Cultu re shows less than 10,00 0 colon y formi ng units of bacte bjorn per leobardo liter of urine . This colon y count is not gener ally consi dered to be clini deidre signi fican t. Not Available [facility] ([facility]) [address] [facility], [place], [address], 04/15/2023 21:06:25 03/18/20 24 03/19/2024 HCV ANTIB CORNELIA hep C virus Ab Non Reacti ve nonrea ctive HCV antib ocrnelia alone does not diffe renti ate betwe en previ ously resol francois infec tion and activ e infec tion. Equiv ocal and React jah HCV antib cornelia resul ts shoul d be follo wed up with an HCV RNA test to suppo rt the diagn osis of activ e HCV infec tion. Not Available [facility] ([facility]) [address] [facility], [place], [address], 03/20/2024 07:15:40 03/18/2003/19/2024 HSV 1 AND 2 AB, IGG hsv 1 IgG, type spec 40.50 index 0.00-0 .90 above high normal Negat jah <0.91 Equiv ocal 0.91 - 1.09 Posit jah >1.09 Note: Negat jah indic ates no antib odies detec julio c to HSV-1 . Equiv ocal may sugge st early infec tion. If clini deidre appro priat e, retes t at later date. Posit jah indic ates antib odies detec julio c to HSV-1 . Not Available [facility] ([facility]) [address] [facility], [place], [address], 03/20/2024 07:15:40 03/18/2003/19/2024 HSV 1 AND 2 AB, IGG hsv 2 IgG, type spec <0.91 index 0.00-0 .90 Negat jah <0.91 Equiv ocal 0.91 - 1.09 Posit jah >1.09 HSV-2 Antib cornelia Inter preta tion: Curre nt guide lines and recom menda tions do not recom mend routi ne scree renard for HSV-2 in asymp tomat ic indiv idual s, inclu ding those that are pregn ant. A negat jah antib cornelia resul t indic ates no detec table antib odies to HSV-2 were found . If recen t expos ure is suspe cted, retes t in 4 to 6 weeks . Equiv ocal sampl es shoul d be retes julio c in 4 to 6 weeks . A posit jah resul t indic ates the prese nce of detec table IgG antib cornelia to HSV-2 . FALSE POSIT JAH RESUL TS MAY OCCUR . Repea t testi ng, or testi ng by a diffe rent metho d, may be indic ated in some setti ngs (e.g. patie nts with low likel ihood of HSV infec tion) . If clini deidre appro priat e, retes t 4 to 6 weeks later . HSV-2 IgG antib cornelia testi ng resul ts shoul d be clini deidre mookie stevenson . Not Available [facility] ([facility]) [address] [facility], [place], [address], 03/20/2024 07:15:40 03/18/20 24 03/20/2024 CHLAM YDIA/ GC AMPLI FICAT ION chlamydia trachomatis, ZARIA Negati ve negati ve Not Available [facility] ([facility]) [address] [facility], [place], [address], 03/20/2024 07:15:41 03/18/20 24 03/20/2024 CHLAM YDIA/ GC AMPLI FICAT ION neisseria gonorrhoeae, ZARIA Negati ve negati ve Not Available [facility] ([facility]) [address] [facility], [place], [address], 03/20/2024 07:15:41 03/18/20 24 03/19/2024 COMP. METAB OLIC PANEL (14) glucose 82 mg/dL 70-99 Not Available [facility] ([facility]) [address] [place], [address], 03/20/2024 07:15:42 03/18/20 24 03/19/2024 COMP. METAB OLIC PANEL (14) BUN 10 mg/dL 6-20 Not Available [facility] ([facility]) [address] [place], [address], 03/20/2024 07:15:42 03/18/20 24 03/19/2024 COMP. METAB OLIC PANEL (14) creatinine 1.06 mg/dL 0.76-1 .27 Not Available [facility] ([facility]) [address] [place], [address], 03/20/2024 07:15:42 03/18/20 24 03/19/2024 COMP. METAB OLIC PANEL (14) eGFR 104 mL/mi n/1.7 3 >59 Not Available [facility] ([facility]) [address] [facility] [place], [address], 03/20/2024 07:15:42 03/18/20 24 03/19/2024 COMP. METAB OLIC PANEL (14) BUN/creatini ne ratio 9 9-20 Not Available [facility] ([facility]) [address] [facility] [place], [address], 03/20/2024 07:15:42 03/18/20 24 03/19/2024 COMP. METAB OLIC PANEL (14) sodium 140 mmol/ L 134-14 4 Not Available [facility] ([facility]) [address] [facility] [place], [address], 03/20/2024 07:15:42 03/18/20 24 03/19/2024 COMP. METAB OLIC PANEL (14) potassium 4.6 mmol/ L 3.5-5. 2 Not Available [facility] ([facility]) [address] [facility] [place], [address], 03/20/2024 07:15:42 03/18/20 24 03/19/2024 COMP. METAB OLIC PANEL (14) chloride 99 mmol/ L 96-106 Not Available [facility] ([facility]) [address] [place], [address], 03/20/2024 07:15:42 03/18/20 24 03/19/2024 COMP. METAB OLIC PANEL (14) carbon dioxide, total 26 mmol/ L 20-29 Not Available [facility] ([facility]) [address] [place], [address], 03/20/2024 07:15:42 03/18/20 24 03/19/2024 COMP. METAB OLIC PANEL (14) calcium 10.7 mg/dL 8.7-10 .2 above high normal Not Available [facility] ([facility]) [address] [place], [address], 03/20/2024 07:15:42 03/18/20 24 03/19/2024 COMP. METAB OLIC PANEL (14) protein, total 7.5 g/dL 6.0-8. 5 Not Available [facility] ([facility]) [address] [facility], [place], [address], 03/20/2024 07:15:42 03/18/20 24 03/19/2024 COMP. METAB OLIC PANEL (14) albumin 4.7 g/dL 4.3-5. 2 Not Available [facility] ([facility]) [address] [facility], [place], [address], 03/20/2024 07:15:42 03/18/20 24 03/19/2024 COMP. METAB OLIC PANEL (14) globulin, total 2.8 g/dL 1.5-4. 5 Not Available [facility] ([facility]) [address] [facility], [place], [address], 03/20/2024 07:15:42 03/18/20 24 03/19/2024 COMP. METAB OLIC PANEL (14) A/G ratio 1.7 1.2-2. 2 Not Available [facility] ([facility]) [address] [facility], [place], [address], 03/20/2024 07:15:42 03/18/20 24 03/19/2024 COMP. METAB OLIC PANEL (14) bilirubin, total 1.0 mg/dL 0.0-1. 2 Not Available [facility] ([facility]) [address] [facility] [place], [address], 03/20/2024 07:15:42 03/18/20 24 03/19/2024 COMP. METAB OLIC PANEL (14) alkaline phosphatase 103 IU/L 51-125 Not Available [facility] ([facility]) [address] [facility], [place], [address], 03/20/2024 07:15:42 03/18/20 24 03/19/2024 COMP. METAB OLIC PANEL (14) AST (SGOT) 28 IU/L 0-40 Not Available [facility] ([facility]) [address] [place], [address], 03/20/2024 07:15:42 03/18/20 24 03/19/2024 COMP. METAB OLIC PANEL (14) ALT (SGPT) 29 IU/L 0-44 Not Available [facility] ([facility]) [address] [place], [address], 03/20/2024 07:15:42 03/18/20 24 03/19/2024 URINA LYSIS , ROUTI NE specific gravity 1.015 1.005- 1.030 Not Available [facility] ([facility]) [address] [place], [address], 03/20/2024 07:15:43 03/18/20 24 03/19/2024 URINA LYSIS , ROUTI NE pH 8.0 5.0-7. 5 above high normal Not Available [facility] ([facility]) [address] [place], [address], 03/20/2024 07:15:43 03/18/20 24 03/19/2024 URINA LYSIS , ROUTI NE urine-color Yellow yellow Not Available [facility] ([facility]) [address] [place], [address], 03/20/2024 07:15:43 03/18/20 24 03/19/2024 URINA LYSIS , ROUTI NE appearance Clear clear Not Available [facility] ([facility]) [address] [place], [address], 03/20/2024 07:15:43 03/18/20 24 03/19/2024 URINA LYSIS , ROUTI NE WBC esterase Negati ve negati ve Not Available [facility] ([facility]) [address] [facility], [place], [address], 03/20/2024 07:15:43 03/18/2003/19/2024 URINA LYSIS , ROUTI NE protein Negati ve negati ve/tra ce Not Available [facility] ([facility]) [address] [facility], [place], [address], 03/20/2024 07:15:43 03/18/20 24 03/19/2024 URINA LYSIS , ROUTI NE glucose Negati ve negati ve Not Available [facility] ([facility]) [address] [facility], [place], [address], 03/20/2024 07:15:43 03/18/2003/19/2024 URINA LYSIS , ROUTI NE ketones Negati ve negati ve Not Available [facility] ([facility]) [address] [facility], [place], [address], 03/20/2024 07:15:43 03/18/2003/19/2024 URINA LYSIS , ROUTI NE occult blood Negati ve negati ve Not Available [facility] ([facility]) [address] [facility], [place], [address], 03/20/2024 07:15:43 03/18/2003/19/2024 URINA LYSIS , ROUTI NE bilirubin Negati ve negati ve Not Available [facility] ([facility]) [address] [place], [address], 03/20/2024 07:15:43 03/18/2003/19/2024 URINA LYSIS , ROUTI NE urobilinogen ,semi-qn 0.2 mg/dL 0.2-1. 0 Not Available [facility] ([facility]) [address] [place], [address], 03/20/2024 07:15:43 03/18/20 24 03/19/2024 URINA LYSIS , ROUTI NE nitrite, urine Negati ve negati ve Not Available [facility] ([facility]) [address] [facility], [place], [address], 03/20/2024 07:15:43 03/18/20 24 03/19/2024 URINA LYSIS , ROUTI NE microscopic examination Commen t Micro scopi c not indic ated and not perfo rmed. Not Available [facility] ([facility]) [address] [facility], [place], [address], 03/20/2024 07:15:43 03/18/2003/19/2024 CBC WITH DIFFE RENTI AL/PL ATELE T WBC 5.6 x10e3 /uL 3.4-10 .8 Not Available [facility] ([facility]) [address] [facility], [place], [address], 03/20/2024 07:15:43 03/18/20 24 03/19/2024 CBC WITH DIFFE RENTI AL/PL ATELE T RBC 5.27 x10e6 /uL 4.14-5 .80 Not Available [facility] ([facility]) [address] [facility], [place], [address], 03/20/2024 07:15:43 03/18/2003/19/2024 CBC WITH DIFFE RENTI AL/PL ATELE T hemoglobin 15.3 g/dL 13.0-1 7.7 Not Available [facility] ([facility]) [address] [place], [address], 03/20/2024 07:15:43 03/18/2003/19/2024 CBC WITH DIFFE RENTI AL/PL ATELE T hematocrit 46.6 % 37.5-5 1.0 Not Available [facility] ([facility]) [address] [place], [address], 03/20/2024 07:15:43 03/18/2003/1903/19/2024 CBC WITH DIFFE RENTI AL/PL ATELE T MCV 88 fL 79-97 Not Available [facility] ([facility]) [address] [place], [address], 03/20/2024 07:15:43 03/18/20 24 03/19/2024 CBC WITH DIFFE RENTI AL/PL ATELE T MCH 29.0 pg 26.6-3 3.0 Not Available [facility] ([facility]) [address] [facility], [place], [address], 03/20/2024 07:15:43 03/18/2003/19/2024 CBC WITH DIFFE RENTI AL/PL ATELE T MCHC 32.8 g/dL 31.5-3 5.7 Not Available [facility] ([facility]) [address] [place], [address], 03/20/2024 07:15:43 03/18/20 24 03/19/2024 CBC WITH DIFFE RENTI AL/PL ATELE T RDW 13.3 % 11.6-1 5.4 Not Available [facility] ([facility]) [address] [place], [address], 03/20/2024 07:15:43 03/18/20 24 03/19/2024 CBC WITH DIFFE RENTI AL/PL ATELE T platelets 184 x10e3 /uL 150-45 0 Not Available [facility] ([facility]) [address] [place], [address], 03/20/2024 07:15:43 03/18/2003/19/2024 CBC WITH DIFFE RENTI AL/PL ATELE T neutrophils 50 % notest ab. Not Available [facility] ([facility]) [address] [place], [address], 03/20/2024 07:15:43 03/18/20 24 03/19/2024 CBC WITH DIFFE RENTI AL/PL ATELE T lymphs 35 % notest ab. Not Available [facility] ([facility]) [address] [facility], [place], [address], 03/20/2024 07:15:43 03/18/20 24 03/19/2024 CBC WITH DIFFE RENTI AL/PL ATELE T monocytes 10 % notest ab. Not Available [facility] ([facility]) [address] [facility], [place], [address], 03/20/2024 07:15:43 03/18/20 24 03/19/2024 CBC WITH DIFFE RENTI AL/PL ATELE T eos 4 % notest ab. Not Available [facility] ([facility]) [address] [facility], [place], [address], 03/20/2024 07:15:43 03/18/20 24 03/19/2024 CBC WITH DIFFE RENTI AL/PL ATELE T basos 1 % notest ab. Not Available [facility] ([facility]) [address] [facility], [place], [address], 03/20/2024 07:15:43 03/18/20 24 03/19/2024 CBC WITH DIFFE RENTI AL/PL ATELE T neutrophils (absolute) 2.8 x10e3 /uL 1.4-7. 0 Not Available [facility] ([facility]) [address] [facility], [place], [address], 03/20/2024 07:15:43 03/18/20 24 03/19/2024 CBC WITH DIFFE RENTI AL/PL ATELE T lymphs (absolute) 1.9 x10e3 /uL 0.7-3. 1 Not Available [facility] ([facility]) [address] [facility], [place], [address], 03/20/2024 07:15:43 03/18/20 24 03/19/2024 CBC WITH DIFFE RENTI AL/PL ATELE T monocytes(ab solute) 0.6 x10e3 /uL 0.1-0. 9 Not Available [facility] ([facility]) [address] [facility], [place], [address], 03/20/2024 07:15:43 03/18/20 24 03/19/2024 CBC WITH DIFFE RENTI AL/PL ATELE T eos (absolute) 0.2 x10e3 /uL 0.0-0. 4 Not Available [facility] ([facility]) [address] [facility], [place], [address], 03/20/2024 07:15:43 03/18/2003/19/2024 CBC WITH DIFFE RENTI AL/PL ATELE T baso (absolute) 0.0 x10e3 /uL 0.0-0. 2 Not Available [facility] ([facility]) [address] [facility], [place], [address], 03/20/2024 07:15:43 03/18/20 24 03/19/2024 CBC WITH DIFFE RENTI AL/PL ATELE T immature granulocytes 0 % notest ab. Not Available [facility] ([facility]) [address] [facility], [place], [address], 03/20/2024 07:15:43 03/18/20 24 03/19/2024 CBC WITH DIFFE RENTI AL/PL ATELE T immature grans (abs) 0.0 x10e3 /uL 0.0-0. 1 Not Available [facility] ([facility]) [address] [facility], [place], [address], 03/20/2024 07:15:43 03/18/2003/19/2024 RPR, RFX QN RPR/C ONFIR M TP RPR Non Reacti ve nonrea ctive Not Available [facility] ([facility]) [address] [facility], [place], [address], 03/20/2024 07:15:44 03/18/20 24 03/19/2024 HIV AB/P2 4 AG WITH REFLE X HIV Ab/P24 Ag screen Non Reacti ve nonrea ctive HIV Negat jah HIV-1 /HIV- 2 antib odies and HIV-1 p24 antig en were NOT detec julio c. There is no labor atory evide nce of HIV infec tion. Not Available [facility] ([facility]) [address] [facility], [place], [address], 03/20/2024 07:15:45 03/30/2003/26/2024 US, neck, soft tissu e No observ ation record ed. [address], [address], 04/02/2024 15:19:22 Result Notes None recorded. Problems Name Problem SNOMED Code Status Onset Date Resolution Date Notes Provider Name and Address Organization Details Recorded Time Marijuana user 357045704 Active 023 Radha Munson MD Attn: Vead liza,[address] [facility], [place], [address], [facility] [place] 3 20:43:23 SARS-CoV-2 mRNA vaccine declined [id number] Active 024 Ayla Osborne MD Attn: Veda g,[address] [facility], [place], [address], [facility] - [place] 4 14:42:38 Problem Notes None recorded. Procedures Surgical History Date Name Laterality Status Provider Name and Address Organization Details Recorded Time circumcision completed Miguel rai [place] 08/25/2019 15:03:32 thumb surgery completed Daya orta [place] 03/18/2024 14:04:58 Imaging Results None recorded. Procedure Notes None recorded. Medical Equipment None Reported. Allergies No known drug allergies Medications Name Sig Start Date Stop Date Status Note LastModified by Organization Details LastModified Time nitrofurant oin macrocrysta l 50 mg capsule TAKE 1 CAPSULE BY MOUTH EVERY 6 HOURS FOR 7 DAYS 07/20 /2022 completed Not Available Not Available Not Available ibuprofen 800 mg tablet 11/03 completed Not Available Not Available Not Available hydrocodone 5 mg-acetamin ophen 325 mg tablet 11/03 completed Not Available Not Available Not Available phenazopyri dine 200 mg tablet TAKE 1 TABLET BY MOUTH THREE TIMES DAILY NEEDED FOR 5 DAYS 06/13 completed Not Available Not Available Not Available tretinoin 0.05 % topical cream APPLY TO THE AFFECTED AREA(S) BY TOPICAL ROUTE ONCE DAILY AT BEDTIME 03/18 completed Not Available Not Available Not Available sulfamethox azole 800 mg-trimetho prim 160 mg tablet Take 1 tablet every 12 hours by oral route for 10 days. 12/01 completed Not Available Not Available Not Available phenazopyri dine 100 mg tablet TAKE 1 TABLET BY MOUTH THREE TIMES DAILY NEEDED FOR PAIN 03/18 completed Not Available Not Available Not Available doxycycline monohydrate 100 mg capsule TAKE 1 CAPSULE BY MOUTH TWICE DAILY FOR 7 DAYS 06/13 completed Not Available Not Available Not Available ibuprofen 400 mg tablet TAKE 1 TABLET BY MOUTH EVERY 6 HOURS NEEDED FOR PAIN 03/18 completed Not Available Not Available Not Available ceftriaxone 500 mg solution for injection Take 500 mg by injection route for 1 day. 12/01 completed Not Available Not Available Not Available mupirocin 2 % topical ointment Apply 1 applicati on 3 times a day by topical route for 7 days. 03/18 completed Not Available Not Available Not Available polyethylen e glycol 3350 17 gram/dose oral powder TAKE 17 G EVERY DAY BY MOUTH 06/13 completed Not Available Not Available Not Available doxycycline hyclate 100 mg tablet Take 1 tablet twice a day by oral route for 7 days. 03/18 completed Not Available Not Available Not Available erythromyci n-benzoyl peroxide 3 %-5 % topical gel APPLY TO THE AFFECTED AREA(S) BY TOPICAL ROUTE 2 TIMES PER DAY IN THEMORNIN G AND EVENING 03/18 completed Not Available Not Available Not Available Menactra (PF) 4 mcg/0.5 mL intramuscul ar solution 08/25 completed Not Available Not Available Not Available Vitals Date Recorded Body weight Provider Name an d Address Organization Details Last Updated DateTime 12/01/2021 67489.39 g Yanira Hess MA [facility] 12/01/19 22 14:49:06 Date Recorded Body height Body mass index (BMI) Body mass index (BMI) [Percentile] Per age and sex Body weight Heart rate Oxygen saturation Oxygen saturation in Arterial blood by Pulse oximetry Respiratory rate Body temperature Systolic And Diastolic Provider Name and Address Organization Details Last Updated DateTime 4 180.34 cm 20.3 kg/m2 20 % 44626.9 7 g 76 /min 98 % 98 % 16 /min 98.3 [degF] 120/76 mm[Hg] Daya Potter MA [facility] 4 14:13:08 Date Recorded Body weight Provider Name an d Address Organization Details Last Updated DateTime 04/09/2023 60095.93 g Yanira Hess MA [facility] 04/09/20 23 16:33:43 Date Recorded Body weight Body mass index (BMI) Body mass index (BMI) [Percentile] Per age and sex Body height Oxygen saturation Oxygen saturation in Arterial blood by Pulse oximetry Heart rate Body temperature Systolic And Diastolic Provider Name and Address Organization Details Last Updated DateTime 2 65196.1 9 g 19.1 kg/m2 18 % 177.17 cm 98 % 98 % 63 /min 97.8 [degF] 104/70 mm[Hg] Yanira Hess MA [facility] 2 10:00:35 Date Recorded Body weight Body temperature Provider N amanda and Address Organization Details Last Updated DateTime 11/03/2021 64583.58 g 97.7 [degF] Sudha Carmona MA [facility] 11/03/2021 09:57:19 Social History Question Answer Notes LastModified by Organizat ion Details LastModified Time Tobacco Smoking Status Current Some Day Smoker STONEY Neville, [facility] 03/18/2024 14:04:16 Do You Wear A Helmet When Biking? No [email or web address] Information not available 11/08/2015 What Is Your Level Of Caffeine Consumption? Occasional Green Tea Information not available 03/18/2024 What Type Of Diet Are You Following? REGULAR [email or web address] Information not available 11/08/2015 What Is The Highest Grade Or Level Of School You Have Completed Or The Highest Degree You Have Received? [id number] Information not available 06/13/2022 What Is The Fluoride Status Of Your Home? Unknown [email or web address] Information not available 11/08/2015 Are There Any Guns Present In Your Home? No [email or web address] Information not available 11/08/2015 What Is Your Home Situation? Both Parents Information not available 11/08/2015 Do You Use Insect Repellent Routinely? Yes Information not available 08/25/2019 What Was The Date Of Your Most Recent Tobacco Screening? 03/18/2024 Information not available 03/18/2024 What Is Your Current Pack Years? [email or web address] Information not available 03/18/2024 What Is Your Parents' Marital Status? [email or web address] Information not available 11/08/2015 Do You Have Any Pets? Yes Information not available 06/13/2022 What Is The Name Of Your School? [employer] Information not available 08/25/2019 Do You Have Any Siblings? 5 Information not available 10/21/2019 Do You Have Smoke And Carbon Monoxide Detectors In Your Home? Yes [email or web address] Information not available 11/08/2015 Are You Passively Exposed To Smoke? Yes Dad Information not available 08/25/2019 How Much Tobacco Do You Smoke? No [email or web address] Information not available 11/08/2015 What Types Of Sporting Activities Do You Participate In? None Information not available 06/13/2022 Do You Use Sunscreen Routinely? No [email or web address] Information not available 11/08/2015 Has Tobacco Cessation Counseling Been Provided? Yes Information not available 03/18/2024 On What Date Was Tobacco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
--- OUTSIDE RECORDS SUMMARY | 2025-10-06 20:11 | XMS_ITS | Clinical Summary ---
Author Organization [facility] Address [address] [place] [address] Care Team Providers Care Body Stylist Name Role Phone Unknown, Notinfile Primary Care [...] this topic Insurance [employer] [place] [address] Care Teams Body Stylist Relationship Specialty Start Date End Date Unknown, Notinfile PCP - General 06/16/23
--- OUTSIDE RECORDS SUMMARY | 2025-10-06 20:11 | XMS_ITS | Clinical Summary ---
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 Gender Identity Not on file Sexual Orientation [...] Standard) 2021 Hepatitis C 2023 COVID-19 Vaccine (1 - 2024- season) 2025 Influenza Adult (#1) 2025 11/08/2015, 02/01/2010, 08/31/2008 DTaP, Tdap and Td Vaccines (8 - Td or Tdap) 06/16/2033 06/16/2023, 09/17/2016, 07/20/2009, Additional history exists Hepatitis B Vaccines Completed 01/10/2007, 01/10/2007, 05/03/2006, Additional history exists Hepatitis A Vaccines Completed 05/13/2008, 01/10/20 07 Pneumococcal Vaccine: Pediatrics (0 to 5 Years) and At-Risk Patients (6 to 49 Years) Completed 02/01/2009, 05/03/2006, 2005, Additional history exists HPV Vaccines Completed 09/17/2016, 11/08/2015 Meningococcal Vaccine Completed 06/13/2022, 017 RSV Immunizations Under 20 Months Aged Out No longer eligible based on patient's age to complete this topic Insurance MEDICAID DEPT OF [facility] [place] [address] UMR Care Teams Web Content Executive Relationship Specialty Start Date End Date None, Provider, PCP - General UNKNOWN PHYSICIAN SPECIALTY 11/20/23
[2025-10-06 20:14] VITALS: BP 124/70; PULSE 120; RESP 20; TEMP 36.9; O2SAT 100
[2025-10-07] MEDS: ACETAMINOPHEN 500 MG TABLET 1000 MG PO (00:35)
[2025-10-07 01:39] LABS: Estimated CRCL calculation 74 ml/min; Estimated Glomerular Filt Rate > 60
[2025-10-07] MEDS: CYCLOBENZAPRINE HCL 5 MG TABLET PO (01:54)
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
[2025-10-07 02:02] VITALS: PULSE 88
[2025-10-07 03:04] VITALS: BP 129/74; PULSE 80; RESP 14; O2SAT 100
== END 2025-10-07 03:00 | disposition home or self-care (01) ==
PROVIDERS: Emergency Provider Physician Assistant
DX: S16.1XXA Strain of muscle, fascia and tendon at neck level, initial encounter (principal); R07.89 Other chest pain; V49.40XA Driver injured in collision with unspecified motor vehicles in traffic accident, initial encounter
CPT/HCPCS: 70450; 71260; 72125; 99284; A9270; Q9967